=== PATIENT | female | born 1930 | race Caucasian/White ===

== ENCOUNTER 2020-09-23 11:56 | Inpatient (IN) | payer MEDICARE, OTHER ==
[2020-09-23 13:06] LABS: BASOPHIL 0.6 % (0-2); EOSINOPHIL 1.8 % (0-7); HCT 28.3 % (37.0-47.0); HGB 9.1 g/dl (12.5-16.0); LYMPHOCYTE 9.3 % (15-48); MCH 30.4 pg (25.0-31.0); MCHC 32.2 g/dL (32.0-36.0); MCV 94.6 fL (78.0-100.0); MONOCYTE 7.9 % (0-12); MPV 9.4 fL (6.0-9.5); NEUTROPHIL 79.7 % (41-80); NRBC 0; PLT 408 K/uL (150-400); RBC 2.99 M/uL (4.20-5.40); RDW 13.1 % (11.5-14.0); WBC 8.9 K/uL (4.0-10.5)
[2020-09-23 13:29] LABS: BUN/CREAT RATIO (CALC) 17.7 RATIO; CREATININE 2.77 mg/dL (0.51-0.95); POTASSIUM 4.6 mmol/L (3.5-5.1)
[2020-09-23 14:23] LABS: BILIRUBIN NEGATIVE (NEGATIVE); BLOOD NEGATIVE Ery/uL (NEGATIVE); CLARITY CLEAR (CLEAR); COLOR YELLOW (YELLOW); GLUCOSE (U) NORMAL (NORMAL); LEUKOCYTES NEGATIVE Leu/uL (NEGATIVE); NITRITE NEGATIVE (NEGATIVE); PROTEIN NEGATIVE (NEGATIVE); SPECIFIC GRAVITY 1.015 (1.001-1.030); UROBILINOGEN 0.2 mg/dL (0.2-1.0)
[2020-09-23] MEDS ORDERED: NORVASC 10MG TA10 MG PO (16:36)
[2020-09-23] MEDS ORDERED: BUSPAR5 MG PO (16:37)
[2020-09-23] MEDS ORDERED: PLAVIX75 MG PO (16:37)
[2020-09-23] MEDS ORDERED: FEOSOL325 MG PO (16:37)
[2020-09-23] MEDS ORDERED: LASIX40 MG PO (16:38)
[2020-09-23] MEDS ORDERED: LEVOTHYROXINE25 MC1 PO (16:39)
[2020-09-23] MEDS ORDERED: COZAAR100 MG PO (16:39)
[2020-09-23] MEDS ORDERED: ZOCOR20 MG PO (16:40)
[2020-09-23] MEDS ORDERED: LOPRESSOR25 MG PO (16:40)
[2020-09-23] MEDS ORDERED: VITAMIN D21250 MCG PO (16:41)
[2020-09-23] MEDS ORDERED: LEVAQUIN500 MG PO (16:43)
[2020-09-24 08:19] LABS: HCT 26.8 % (37.0-47.0); HGB 8.4 g/dl (12.5-16.0); MCH 29.9 pg (25.0-31.0); MCHC 31.3 g/dL (32.0-36.0); MCV 95.4 fL (78.0-100.0); MPV 9.3 fL (6.0-9.5); RBC 2.81 M/uL (4.20-5.40); RDW 12.9 % (11.5-14.0); WBC 9.1 K/uL (4.0-10.5)
[2020-09-24 08:44] LABS: BUN/CREAT RATIO (CALC) 19.8 RATIO; CREATININE 2.12 mg/dL (0.51-0.95); POTASSIUM 4.3 mmol/L (3.5-5.1)
[2020-09-24 12:24] LABS: IRON % SATURATION 14.4 %SAT (20-50)
[2020-09-24 13:06] LABS: FOLIC ACID (SERUM) 12.3 ng/mL (8.6-58.9)
[2020-09-25 06:23] LABS: BASOPHIL 0 % (0-2); EOSINOPHIL 0 % (0-7); HCT 25.3 % (37.0-47.0); LYMPHOCYTE 7.4 % (15-48); MCH 30.3 pg (25.0-31.0); MCV 94.8 fL (78.0-100.0); MPV 9.3 fL (6.0-9.5); NEUTROPHIL 89.8 % (41-80); NRBC 0; PLT 365 K/uL (150-400); RBC 2.67 M/uL (4.20-5.40); RDW 12.8 % (11.5-14.0); WBC 7.3 K/uL (4.0-10.5)
[2020-09-25 06:27] LABS: HGB 8.1 g/dl (12.5-16.0)
[2020-09-25 06:38] LABS: CREATININE 1.62 mg/dL (0.51-0.95)
[2020-09-25] MEDS ORDERED: VENTOLIN HFA IN18 GM INH (10:57)
[2020-09-25] MEDS ORDERED: ANTIVERT25 MG PO (10:57)
--- NOTE | 2020-09-25 11:15 | NUR ---
PT. IS CURRENT WITH [employer] TO DELIVER A PORTABLE O2 TANK AND CONCENRATOR TO THE HOME. ADVISED MORENO HAMMOND.
== END 2020-09-25 12:50 | disposition home health service (06) | DRG 206 ==
LOC: FER 11:56 → FMS 14:13
PROVIDERS: Nurse Practitioner Family; ADMIT Internal Medicine
DX: E66.2 Morbid (severe) obesity with alveolar hypoventilation (principal); N17.9 Acute kidney failure, unspecified; Z68.41 Body mass index [BMI] 40.0-44.9, adult; N18.2 Chronic kidney disease, stage 2 (mild); R60.0 Localized edema; T46.1X5A Adverse effect of calcium-channel blockers, initial encounter; D63.1 Anemia in chronic kidney disease; Z20.822 Contact with and (suspected) exposure to COVID-19; L89.322 Pressure ulcer of left buttock, stage 2; L89.312 Pressure ulcer of right buttock, stage 2; I10 Essential (primary) hypertension; E03.9 Hypothyroidism, unspecified; F41.9 Anxiety disorder, unspecified; E78.5 Hyperlipidemia, unspecified; Z90.49 Acquired absence of other specified parts of digestive tract; Z90.710 Acquired absence of both cervix and uterus; Z79.02 Long term (current) use of antithrombotics/antiplatelets; Z79.899 Other long term (current) drug therapy; Z79.890 Hormone replacement therapy
CPT/HCPCS: 36415; 36600; 71045; 71250; 78580; 80048; 81003; 82607; 82728; 82746; 82803; 83540; 83550; 83880; 84145; 85025; 87040; 94640; 97110; 97162; 97166; 97530-GP; 97535; A9540; J0456; J0696; J1650; J2405; J2920; J7030; J7050; U0002